=== PATIENT | female | born 1965 | race Caucasian/White ===

== ENCOUNTER → 2018-07-09 | Outpatient (CLI) | payer OTHER ==
--- NOTE | 2018-07-09 11:35 | RADIOLOGY REPORT (SQ) ---
EXAM DESCRIPTION: LUMBAR SPINE COMPLETE COMPLETED DATE/TIME: 07/09/2018 10:32 am REASON FOR STUDY: LBP COMPARISON: None. NUMBER OF VIEWS: Five views including obliques. TECHNIQUE: AP, lateral, oblique, and sacral radiographic images acquired of the lumbar spine. LIMITATIONS: None. FINDINGS: MINERALIZATION: Normal. SEGMENTATION: Normal. No transitional anatomy. ALIGNMENT: Dextroscoliosis. VERTEBRAE: Maintained height. No fracture or worrisome bone lesion. DISCS: Disc narrowing at L2-3 and L3-4. POSTERIOR ELEMENTS: Pedicles and facets are intact. No pars defect or posterior arch defects. HARDWARE: Rods at L4-5. PARASPINAL SOFT TISSUES: Hypertrophic facet changes at L3-4. PELVIS: Intact as visualized. No fractures or worrisome bone lesions. SI joints intact. OTHER: No other significant finding. IMPRESSION: Surgical changes. Degenerative disc changes. Facet arthropathy. TECHNICAL DOCUMENTATION: JOB ID: [id number] [employer]- All Rights Reserved Reading location - IP/workstation name: [email or web address]
== END ==
LOC: OD 10:14
PROVIDERS: ATTEND Student in an Organized Health Care Education/Training Program
DX: M54.5 Low back pain (principal); M51.36 Other intervertebral disc degeneration, lumbar region
CPT/HCPCS: 72110

== ENCOUNTER 2019-09-28 11:17 | Emergency (ER) | payer OTHER ==
--- NOTE | 2019-09-28 11:32 | EKG REPORT ---
SEVERITY:- NORMAL ECG - SINUS RHYTHM : Confirmed by: Rick Sahu MD 28-Sep-2019 11:31:30
[2019-09-28] MEDS ORDERED: ASPIRIN 81 MG TABLET, CHEWABLE PO ONE (11:34)
--- NOTE | 2019-09-28 11:34 | ER Document Report ---
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 She reports this happened to her about 8 years ago, nitro would take the pain away, she had a stress test and everything was good. Has had no problems since that time. She denies fever coughing vomiting. She reports that chest heaviness comes and goes. Reports it 2/5 at this time. Respiratory rate even unlabored. I have greeted and performed a rapid initial assessment of this patient. A comprehensive ED assessment and evaluation of the patient, analysis of test results and completion of the medical decision making process will be conducted by additional ED providers. TRAVEL OUTSIDE OF THE [place] IN LAST 30 DAYS: No - Related Data Allergies/Adverse Reactions: morphine Allergy (Severe, Verified 09/28/19 11:29) Hives Doctor's Discharge - Discharge Referrals: RAJENDRA GOFF DO [Primary Care Provider] - Follow up as needed
[2019-09-28 11:59] LABS: ABSOLUTE BASOPHILS # (AUTO) 0.2 10^3/uL (0.0-0.2); ABSOLUTE EOSINOPHILS # (AUTO) 0.3 10^3/uL (0.0-0.6); ABSOLUTE LYMPHOCYTES (AUTO) 3.6 10^3/uL (0.5-4.7); ABSOLUTE MONOCYTES (AUTO) 0.7 10^3/uL (0.1-1.4); ABSOLUTE NEUT (AUTO) 6.8 10^3/uL (1.7-8.2); BASOPHILS % (AUTO) 1.3 % (0-2); EOSINOPHILS % (AUTO) 2.5 % (0-6); HEMOGLOBIN 14.2 g/dL (12.0-15.5); LYMPHOCYTES % (AUTO) 31.2 % (13-45); MEAN CORPUSCULAR HEMOGLOBIN 31.5 pg (27.0-33.4); MEAN CORPUSCULAR HGB CONC 33.9 g/dL (32.0-36.0); MEAN CORPUSCULAR VOLUME 93 fl (80-97); MONOCYTES % (AUTO) 6.2 % (3-13); PLATELET COUNT 312 10^3/uL (150-450); RED BLOOD COUNT 4.52 10^6/uL (3.72-5.28); RED CELL DISTRIBUTION WIDTH 13.8 % (11.5-14.0); SEGMENTED NEUTROPHILS % (AUTO) 58.8 % (42-78); TOTAL CELLS COUNTED % (AUTO) 100 %; WHITE BLOOD COUNT 11.6 10^3/uL (4.0-10.5)
--- NOTE | 2019-09-28 12:20 | RADIOLOGY REPORT (SQ) ---
EXAM DESCRIPTION: CHEST 2 VIEWS COMPLETED DATE/TIME: 09/28/2019 12:09 pm REASON FOR STUDY: chest pain COMPARISON: None. TECHNIQUE: Frontal and lateral radiographic views of the chest acquired. NUMBER OF VIEWS: Two view. LIMITATIONS: None. FINDINGS: LUNGS AND PLEURA: No opacities, masses or pneumothorax. No pleural effusion. MEDIASTINUM AND HILAR STRUCTURES: No masses or contour abnormalities. HEART AND VASCULAR STRUCTURES: Heart normal size. No evidence for failure. BONES: No acute findings. HARDWARE: None in the chest. OTHER: No other significant finding. IMPRESSION: NO SIGNIFICANT RADIOGRAPHIC FINDING IN THE CHEST. TECHNICAL DOCUMENTATION: JOB ID: [id number] [employer]- All Rights Reserved Reading location - IP/workstation name: [email or web address]
[2019-09-28 12:21] LABS: ALBUMIN 4.7 g/dL (3.5-5.0); ALKALINE PHOSPHATASE 65 U/L (38-126); ANION GAP 8 (5-19); ASPARTATE AMINO TRANSFERASE 24 U/L (14-36); BILIRUBIN,DIRECT 0.4 mg/dL (0.0-0.4); BILIRUBIN,TOTAL 0.7 mg/dL (0.2-1.3); BLOOD UREA NITROGEN 21 mg/dL (7-20); CALCIUM 10.2 mg/dL (8.4-10.2); CARBON DIOXIDE 27 mmol/L (22-30); CHLORIDE 104 mmol/L (98-107); CREATINE KINASE 109 U/L (30-135); GLUCOSE 96 mg/dL (75-110); POTASSIUM 4.9 mmol/L (3.6-5.0); TOTAL PROTEIN 7.9 g/dL (6.3-8.2)
--- NOTE | 2019-09-28 12:28 | ER Document Report ---
ED General - General Chief Complaint: Chest Pain Stated Complaint: CHEST PAIN Time Seen by Provider: 09/28/19 11:27 Primary Care Provider: RAJENDRA GOFF DO [Primary Care Provider] - Follow up as needed Mode of Arrival: Wheelchair Notes: Patient is a 54-year-old white female with a past medical history of hypertension, sleep apnea and obesity who presents to the emergency department with a chief complaint of chest pain that began while at work today. The patient works as a dialysis nurse. She states over the past few days she is not felt quite herself. She states she has had intermittent episodes of chest pain that wax and wane. She states today while working the pain became more severe and unrelenting. She states it was a deep pressure in the center chest that radiated to the left neck and left arm. She reports the left arm felt heavy. She states this concerned her so she came to the emergency department for evaluation. She was given 4 baby aspirin in triage and reports that she is feeling much better now. She states every now and then she has a weird sensatio n in the chest and has been watching the monitor and sees an occasional PVC. She reports that she takes her blood pressure medicine religiously and is well controlled. Uses her CPAP religiously. Reports her father had a RI had a older age. Patient is a recent smoker. States that she just quit approximately 6 months ago and is using nicotine lozenges. Denies any lower extremity pain or unusual swelling. Denies any hemoptysis, cough, shortness of breath, recent travel, recent surgery, recent immobilization, hormone replacement therapy, cancer or fever. TRAVEL OUTSIDE OF THE [place] IN LAST 30 DAYS: No - Related Data Allergies/Adverse Reactions: morphine Allergy (Severe, Verified 09/28/19 11:29) Hives Home Medications: Atenolol, meloxicam, gabapentin, imitrex. Past Medical History - General Information source: Patient - Social History Smoking Status: Former Smoker Chew tobacco use (# tins/day): No Frequency of alcohol use: Rare Drug Abuse: None Family History: CAD Patient has suicidal ideation: No Patient has homicidal ideation: No Review of Systems - Review of Systems Cardiovascular: Chest pain -: Yes All other systems reviewed and negative Physical Exam - Vital signs Vitals: Temp Pulse Resp BP Pulse Ox 98.6 F 75 14 138/93 H 97 09/28/19 11:29 09/28/19 11:29 09/28/19 11:29 09/28/19 11:29 09/28/19 11:29 - General General appearance: Appears well, Alert In distress: None - Respiratory Respiratory status: No respiratory distress Chest status: Nontender Breath sounds: Normal Chest palpation: Normal - Cardiovascular Rhythm: Regular Heart sounds: Normal auscultation Murmur: No - Extremities General upper extremity: Normal inspection, Nontender, Normal color, Normal ROM, Normal temperature General lower extremity: Normal inspection, Nontender, Normal color, Normal ROM, Normal temperature, Normal weight bearing. No: Wale's sign - Neurological Neuro grossly intact: Yes Cognition: Normal Orientation: AAOx4 Rosalia Coma Scale Eye Opening: Spontaneous John Coma Scale Verbal: Oriented John Coma Scale Motor: Obeys Commands John Coma Scale Total: 15 Speech: Normal - Psychological Associated symptoms: Normal affect, Normal mood - Skin Skin Temperature: Warm Skin Moisture: Dry Skin Color: Normal Course - Re-evaluation Re-evalutation: 09/28/19 13:14 EKG 1121: Sinus rhythm at 71 bpm, normal intervals. No STEMI. 09/28/19 14:21 Reevaluation at this time, patient is resting comfortably in the room. Reports her chest pain has not returned. She does admit to having ongoing PVCs that she can "feel". States they are approximately twice per minute. She is pending repeat troponin and EKG, will then consult Dr. Cagle for possible outpatient establishment for stress testing. 09/28/19 15:47 Repeat EKG at 67 bpm. Normal intervals. 1 lone isolated PVC noted. No STEMI. 09/28/19 16:10 Heart score noted to be 4. 09/28/19 16:[address] Cagle regarding the patient, her work-up and her status. He advised it sounds like she does not have ACS and more likely symptomatic PVCs. He recommended patient be seen for outpatient management and care. Patient is agreeable with this plan. She will begin 1 baby aspirin daily until seen and advised otherwise by Dr. Cagle, cardiology. Patient is stable and appropriate for discharge and outpatient follow-up. I counseled her at length regarding the importance of outpatient follow-up and advised that she return here or any ER immediately with any new, persistent or worsening symptoms. She verbalized understood and agreed. She will call Dr. Cagle's office either this afternoon or tomorrow morning for an appointment within the next 72 hours. - Vital Signs Vital signs: Temp Pulse Resp BP Pulse Ox 98.6 F 75 20 130/76 H 98 09/28/19 11:29 09/28/19 11:29 09/28/19 15:01 09/28/19 15:01 09/28/19 14:01 - Laboratory Result Diagrams: 09/28/19 11:45 09/28/19 11:45 Laboratory results interpreted by me: 09/28/19 09/28/19 11:45 11:45 WBC 11.6 H BUN 21 H Discharge - Discharge Clinical Impression: PVC (premature ventricular contraction) Chest pain Qualifiers: Chest pain type: unspecified Qualified Code(s): R07.9 - Chest pain, unspecified Condition: Stable Disposition: HOME, SELF-CARE Instructions: Angina Episode ([facility]) Additional Instructions: Please call Dr. Cagle as soon as possible for a outpatient follow-up in the next 72 hours. Return here or any ER immediately with any new, persistent or worsening symptoms. Referrals: RAJENDRA GOFF DO [Primary Care Provider] - Follow up as needed MAYCOL CAGLE MD [ACTIVE STAFF] - Follow up tomorrow
[2019-09-28 12:30] LABS: CREATINE KINASE MB 2.16 ng/mL (<4.55); TROPONIN I < 0.012 ng/mL
[2019-09-28 12:48] LABS: INTERNATIONAL RATION (INR) 0.97; PROTHROMBIN TIME 12.9 SEC (11.4-15.4)
[2019-09-28 12:49] LABS: PARTIAL THROMBOPLASTIN TIME 29.9 SEC (23.5-35.8)
[2019-09-28 13:47] LABS: APPEARANCE,URINE CLEAR; BILIRUBIN,URINE NEGATIVE (NEGATIVE); COLOR,URINE STRAW; GLUCOSE, URINE NEGATIVE (NEGATIVE); KETONES,URINE NEGATIVE (NEGATIVE); LEUKOCYTE ESTERASE,URINE NEGATIVE (NEGATIVE); NITRITE,URINE NEGATIVE (NEGATIVE); PROTEIN,URINE NEGATIVE (NEGATIVE); URINE SPECIFIC GRAVITY 1.004; UROBILINOGEN,URINE NEGATIVE mg/dL (<2.0)
[2019-09-28 17:03] VITALS: BP 150/95
--- NOTE | 2019-09-29 08:17 | EKG REPORT ---
SEVERITY:- OTHERWISE NORMAL ECG - SINUS RHYTHM VENTRICULAR PREMATURE COMPLEX : Confirmed by: Rick Sahu MD 29-Sep-2019 08:16:38
== END 2019-09-28 17:03 | disposition home or self-care (01) ==
LOC: ER 11:17
DX: I49.3 Ventricular premature depolarization (principal); R07.89 Other chest pain; I10 Essential (primary) hypertension; F17.200 Nicotine dependence, unspecified, uncomplicated; Z79.899 Other long term (current) drug therapy; Z82.49 Family history of ischemic heart disease and other diseases of the circulatory system
CPT/HCPCS: 36415; 71046; 80053; 81001; 82550; 82553; 84484; 85025; 85610; 85730; 93005; 93010; 99285

== ENCOUNTER → 2019-10-10 | Outpatient (CLI) | payer OTHER ==
[~2019-10-10] MED LIST: REGADENOSON INJ 0.4 MG/5 ML DISP.SYRIN IV ONE
--- NOTE | 2019-10-10 12:30 | DRAGON STRESS TEST REPORT ---
Pharmacologic nuclear stress test Date: 10/10/2019 Procedure: Regadenoson nuclear stress test Indication: Chest pain Clinical history: 54-year-old lady with hypertension who presents with chest pain. Procedure The patient presented to the stress lab. Initially, rest images were obtained after injection of 15.54 mCi of technetium 99 M sestamibi. The patient's baseline EKG showed sinus rhythm at 70 bpm. Subsequently patient underwent stress testing with regadenoson 0.4 mg IV according to standard protocol. EKG and vital signs were monitored. The patient stress EKG did not show any evidence of myocardial ischemia. The patient did not have any symptoms suggestive of myocardial ischemia with pharmacological stress. The patient was injected with 47.7 mCi of technetium 99m sestamibi according to standard protocol and subsequently stress images were obtained. Raw as well as processed stress and rest images were reviewed. The images show uniform uptake of radioactive isotope throughout the myocardium. There was uptake in the gut and the liver but this did not interfere with image quality. Attenuation correction was not available for the study. There is evidence of breast attenuation with anterior defects which are worse on the rest images. The left ventricular ejection fraction is estimated at 69%. The TID ratio was 1.1. There was normal myocardial contractility post stress. Conclusion The stress EKG is negative for myocardial ischemia by pharmacological stress. There is no scintigraphic evidence of myocardial ischemia or infarction Left ventricular ejection fraction is estimated at 69% There is normal contractility post stress. The patient will be given an appointment to discuss these results. [facility]
--- NOTE | 2019-10-11 16:31 | XCELERA REPORT ---
[address] [address] Transthoracic Echocardiogram Report Name: LEIGHA ELLIS Age: 54 yrs Gender: Female : 1965 Patient Status: Outpatient Patient Location: [facility] Study Date: 10/10/2019 09:26 AM History: PVC Chest pain Height: 70 in Weight: 247 lb BSA: 2.3 m2 Procedure: A complete two-dimensional transthoracic echocardiogram was performed (2D, M-mode, spectral and color flow Doppler). The study was technically adequate with some images being suboptimal in quality. Reason For Study: CP History: Chest pain. PVC. Ordering Physician: MAYCOL CAGLE Performed By: Grabiel Malik Interpretation Summary Left ventricular systolic function is normal. The Ejection Fraction estimate is 55-60% The right ventricle is normal in size and function. There is a mild amount of mitral regurgitation There is no aortic valve stenosis There is a mild amount of tricuspid regurgitation There is no pericardial effusion. MMode/2D Measurements & Calculations RVDd: 2.6 cm LVIDd: 5.0 cm FS: 35.7 % Ao root diam: 2.9 cm IVSd: 1.0 cm LVIDs: 3.2 cm EDV(Teich): 119.1 ml Ao root area: 6.7 cm2 LVPWd: 1.0 cm ESV(Teich): 41.7 ml LA dimension: 4.0 cm EF(Teich): 65.0 % Doppler Measurements & Calculations MV E max мария: MV P1/2t max мария: Ao V2 max: LV V1 max P.1 cm/sec 140.6 cm/sec 159.3 cm/sec 6.6 mmHg MV A max мария: MV P1/2t: 57.0 msec Ao max PG: LV V1 max: 86.1 cm/sec MVA(P1/2t): 3.9 cm2 10.1 mmHg 128.2 cm/sec MV E/A: 1.4 MV dec slope: LV dP/dt: 1515 mmHg/s 722.4 cm/sec2 MV dec time: 0.17 sec PA V2 max: TR max мария: MV P1/2t-pr_phl: 101.4 cm/sec 260.6 cm/sec 57.0 msec PA max P.1 mmHgTR max P.2 mmHg Left Ventricle The left ventricle is grossly normal size. There is mild concentric left ventricular hypertrophy. Left ventricular systolic function is normal. The Ejection Fraction estimate is 55-60%. Doppler measurements suggest pseudonormalized left ventricular relaxation, which is associated with grade II/IV or mild to moderate diastolic dysfunction. No regional wall motion abnormalities noted. Right Ventricle The right ventricle is normal in size and function. Atria The right atrium is normal. The left atrium is mildly dilated. Lipomatous hypertrophy of the interatrial septum is noted. Mitral Valve The mitral valve is grossly normal. There is no mitral valve stenosis. There is a mild amount of mitral regurgitation. Aortic Valve The aortic valve is normal in structure and function. The aortic valve opens well. There is no aortic valve stenosis. No aortic regurgitation is present. Tricuspid Valve The tricuspid valve is normal in structure and function. There is a mild amount of tricuspid regurgitation. Tricuspid regurgitation jet envelope not well defined to measure RV systolic pressure accurately. Effusions There is no pericardial effusion. : MAYCOL CAGLE Anil
== END ==
LOC: RAD 06:19
PROVIDERS: ATTEND Internal Medicine
DX: R07.9 Chest pain, unspecified (principal); I49.3 Ventricular premature depolarization; I10 Essential (primary) hypertension
CPT/HCPCS: 93306; 93017; 78452; A9500; J2785; Q9969